=== PATIENT | female | born 1960 | race Caucasian/White ===

== ENCOUNTER 2016-11-30 10:03 | Emergency (ER) | payer OTHER ==
[~2016-11-30] VITALS: Ht 167.6 cm; Wt 68.0 kg
[~2016-11-30 10:03] MED LIST: CLON2TAB2 PO; METH10TA2 PO; QUET400T4 PO
--- NOTE | 2016-11-30 11:06 | PHYS DOC ---
Past Medical History Past Medical History: Anxiety, Bipolar, Renal Disease, Other Additional Past Medical Histor: drug addiction, 2 URETERS RIGHT KIDNEY Past Surgical History: , Hysterectomy Additional Information: 1/2 PACK/DAY Alcohol Use: None Drug Use: None Adult General Chief Complaint Chief Complaint: ABDOMINAL PAIN HPI HPI Patient is a 56 year old female who presents with complaint of left flank pain for the past 2 days. Patient states that she has had worsening symptoms of sharp pain in her left flank. Patient states that she has been having difficulty finding a position of comfort. Patient states she has history of urinary tract infections and pyelonephritis but states that that typically would involve her right side. Patient has had nausea associated with her symptoms. Patient denies any fever or diarrhea. The patient is concerned that she may have another urinary tract infection and came into the emergency department for evaluation. Patient rates her pain currently as 9 out of 10. Patient has not taken any medications to help with symptoms at this time. Review of Systems Review of Systems Constitutional: Denies fever or chills [] Eyes: Denies change in visual acuity, redness, or eye pain [] HENT: Denies nasal congestion or sore throat [] Respiratory: Denies cough or shortness of breath [] Cardiovascular: No additional information not addressed in HPI [] GI: Left flank pain, nausea, denies diarrhea [] : Denies dysuria or hematuria [] Musculoskeletal: Denies back pain or joint pain [] Integument: Denies rash or skin lesions [] Neurologic: Denies headache, focal weakness or sensory changes [] Endocrine: Denies polyuria or polydipsia [] Current Medications Current Medications Current Medications Medications (Trade) Dose Ordered Sig/Cher Start Time Stop Time Status Last Admin Dose Admin Famotidine (Pepcid) 20 mg 1X ONCE 11/30/16 11:15 11/30/16 11:16 DC 11/30/16 11:31 20 MG Fentanyl Citrate 50 mcg 50 mcg PRN Q15MIN PRN 11/30/16 11:15 11/30/16 14:19 DC 11/30/16 12:01 50 MCG Ondansetron HCl (Zofran) 4 mg 1X ONCE 11/30/16 11:15 11/30/16 11:16 DC 11/30/16 11:31 4 MG Sodium Chloride (Iv Sodium Chloride 0.9% 1000ml Bag) 1,000 ml @ 1,000 mls/hr Q1H 11/30/16 11:15 11/30/16 12:14 DC 11/30/16 11:31 1,000 MLS/HR Allergies Allergies Allergies Coded Allergies Type Severity Reaction Last Updated Verified ciprofloxacin Allergy Severe Anaphylaxis 11/30/16 Yes aripiprazole Allergy Intermediate 03/10/15 No latex Allergy Intermediate Rash 11/30/16 Yes metronidazole Allergy Intermediate 03/10/15 No ofloxacin Allergy Intermediate 03/10/15 No prochlorperazine Allergy Intermediate 03/10/15 No Physical Exam Physical Exam Constitutional: Alert, afebrile, appears in moderate discomfort. [] HENT: Normocephalic, atraumatic, bilateral external ears normal, oropharynx moist, no oral exudates, nose normal. [] Eyes: PERRLA, EOMI, conjunctiva normal, no discharge. [] Neck: Normal range of motion, no tenderness, supple, no stridor. [] Cardiovascular:Heart rate regular rhythm, no murmur [] Lungs & Thorax: Bilateral breath sounds clear to auscultation [] Abdomen: Bowel sounds normal, soft, no tenderness, no masses, no pulsatile masses. [] Skin: Warm, dry, no erythema, no rash. [] Back: No midline tenderness, left CVA tenderness to palpation, no flank ecchymosis. [] Extremities: No tenderness, no cyanosis, no clubbing, ROM intact, no edema. [] Neurologic: Alert and oriented X 3, normal motor function, normal sensory function, no focal deficits noted. [] Current Patient Data Vital Signs Vital Signs Date Time Temp Pulse Resp B/P Pulse Ox O2 Delivery O2 Flow Rate FiO2 11/30/16 13:45 62 18 121/87 98 Room Air 11/30/16 10:43 97.6 97.6 Lab Values Laboratory Tests Test 11/30/16 10:17 11/30/16 11:00 Urine Collection Type Unknown Urine Color [place] Urine Clarity Clear Urine pH 6.0 Urine Specific [place] 1.025 Urine Protein Negativemg/dL (NEG-TRACE) Urine Glucose (UA) Negativemg/dL (NEG) Urine Ketones (Stick) Tracemg/dL (NEG) Urine Blood Negative (NEG) Urine Nitrite Negative (NEG) Urine Bilirubin Moderate (NEG) Urine Urobilinogen Dipstick 1.0mg/dL (0.2 mg/dL) Urine Leukocyte Esterase Small (NEG) Urine RBC Occ/HPF (0-2) Urine WBC 1-4/HPF (0-4) Urine Squamous Epithelial Cells Mod/LPF Urine Transitional Epithelial Cells Occ/LPF Urine Bacteria 0/HPF (0-FEW) Urine Mucus Marked/LPF White Blood Count 7.2x10^3/uL (4.0-11.0) Red Blood Count 4.60x10^6/uL (3.50-5.40) Hemoglobin 15.1g/dL (12.0-15.5) Hematocrit 43.8% (36.0-47.0) Mean Corpuscular Volume 95fL (79-100) Mean Corpuscular Hemoglobin 33pg (25-35) Mean Corpuscular Hemoglobin Concent 34g/dL (31-37) Red Cell Distribution Width 12.7% (11.5-14.5) Platelet Count 380x10^3/uL (140-400) Neutrophils (%) (Auto) 69% (31-73) Lymphocytes (%) (Auto) 22% (24-48) L Monocytes (%) (Auto) 8% (0-9) Eosinophils (%) (Auto) 1% (0-3) Basophils (%) (Auto) 1% (0-3) Neutrophils # (Auto) 4.9x10^3uL (1.8-7.7) Lymphocytes # (Auto) 1.6x10^3/uL (1.0-4.8) Monocytes # (Auto) 0.5x10^3/uL (0.0-1.1) Eosinophils # (Auto) 0.1x10^3/uL (0.0-0.7) Basophils # (Auto) 0.1x10^3/uL (0.0-0.2) Sodium Level 132mmol/L (136-145) L Potassium Level 4.2mmol/L (3.5-5.1) Chloride Level 96mmol/L (98-107) L Carbon Dioxide Level 25mmol/L (21-32) Anion Gap 11 (6-14) Blood Urea Nitrogen 11mg/dL (7-20) Creatinine 0.8mg/dL (0.6-1.0) Estimated GFR (Cockcroft-Gault) 74.5 BUN/Creatinine Ratio 14 (6-20) Glucose Level 90mg/dL (70-99) Calcium Level 9.6mg/dL (8.5-10.1) Total Bilirubin 2.2mg/dL (0.2-1.0) H Aspartate Amino Transferase (AST) 116U/L (15-37) H Alanine Aminotransferase (ALT) 145U/L (14-59) H Alkaline Phosphatase 703U/L (46-116) H Total Protein 9.1g/dL (6.4-8.2) H Albumin 3.8g/dL (3.4-5.0) Albumin/Globulin Ratio 0.7 (1.0-1.7) L Lipase 160U/L (73-393) Laboratory Tests 11/30/16 11:00 Laboratory Tests 11/30/16 11:00 EKG EKG Not performed [] Radiology/Procedures Radiology/Procedures [facility] [address] [place] [address] IMAGING REPORT Signed PATIENT: CHAUNCEY ALDRICH ACCOUNT: [id number] : 1960 LOCATION: ER AGE: 56 SEX: F EXAM STATUS: REG ER ORD. PHYSICIAN: JAMIE SALCEDO MD REASON: left flank pain, possible kidney stone PROCEDURE: ABDOMEN PELVIS WO CONTRAST EXAM: Abdomen and pelvis CT without intravenous contrast. HISTORY: Left flank pain. TECHNIQUE: Computed tomographic images of the abdomen and pelvis were obtained without contrast. Multiplanar reformatting was performed. COMPARISON: 03/19/2016. FINDINGS: Evaluation of the lower thorax demonstrates bilateral lower lobe linear and groundglass opacities likely due to atelectasis. There is no effusion. There are implanted breast prostheses. There is coronary artery atherosclerosis. The gallbladder is distended. There is intrahepatic and extrahepatic biliary ductal dilatation. The pancreas is unremarkable. The spleen is unremarkable. The adrenal glands are unremarkable. There is no evidence of nephrolithiasis or obstructive uropathy. 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 The bladder is decompressed. There is no appendicitis. There is a large amount of stool throughout the colon. There is no evidence of small bowel obstruction. The uterus is surgically absent. No pathologically enlarged lymph node is seen. There is no suspicious osseous lesion. IMPRESSION: 1. Large amount of colonic stool. Correlate for constipation. 2. No evidence of nephrolithiasis or obstructive uropathy to correlate with reported flank pain. 3. Biliary ductal dilatation. Correlation with biliary laboratory values or ERCP or MRCP can be performed to exclude a distal obstructing etiology. PQRS Compliance Statement: One or more of the following individualized dose reduction techniques were utilized for this examination: 1. Automated exposure control 2. Adjustment of the mA and/or kV according to patient size 3. Use of iterative reconstruction technique DICTATED and SIGNED BY: RAYMON AGUILAR MD DATE: 11/30/16 8640 CC: JAMIE SALCEDO MD; NO PCP ~ [] Course & Med Decision Making Course & Med Decision Making Pertinent Labs and Imaging studies reviewed. (See chart for details) Patient's workup is concerning for biliary obstruction based off of imaging and lab work. On chart review, the patient has had progressively worsening elevations in her liver enzymes over the past year and a half. Due to severity of patient's symptoms, I recommended that she be admitted to the hospital as she will need to have additional imaging and GI consult to determine the cause of the patient's biliary obstruction with resultant liver failure. The patient was also noted to have a significant amount of stool throughout the colon which may be exacerbating her pain. Due to the patient's pain, I am also concerned the patient may have early stage ascending cholangitis which would need to be evaluated in an inpatient setting. After speaking with the patient regarding this, the patient initially agreed to be admitted to the hospital that she was apprehensive as she is currently on methadone therapy for chronic pain. The patient however decided that she did not want to be admitted to the hospital at this time. Due to the risk of worsening status over the next 2-3 days and the fact that the patient has no follow-up set up at this time, I recommended that the patient not leave at this time. The patient stated that she would not stay and agreed to sign out AGAINST MEDICAL ADVICE. I recommended that she return to the hospital as soon as she is ready and especially if she has any worsening symptoms. Dragon Disclaimer Dragon Disclaimer This electronic medical record was generated, in whole or in part, using a voice recognition dictation system. Departure Departure Impression: Primary Impression: Biliary obstruction Additional Impression: Abdominal pain Disposition: LEFT WITHOUT BEING SEEN Condition: LEFT WITHOUT BEING SEEN Referrals: NO PCP (PCP) Problem Qualifiers Additional Impression: Abdominal pain Abdominal location: left upper quadrant Qualified Code: R10.12 - Left upper quadrant pain JAMIE SALCEDO MD Nov 30, 2016 11:05
[2016-11-30] MEDS ORDERED: ONDANSETRON PF 4 MG/2 ML VIAL. IV ONE (11:15)
[2016-11-30] MEDS ORDERED: FAMOTIDINE 20 MG/2 ML VIAL IVP ONE (11:15)
[2016-11-30] MEDS ORDERED: IV NORMAL SALINE 1000ML BAG 1,000 ML IV SCH (11:15)
[2016-11-30 11:24] LABS: BILIRUBIN,URINE MODERATE (NEG); GLUCOSE,URINE NEGATIVE (NEG); NITRITE,URINE NEGATIVE (NEG); PROTEIN,URINE NEGATIVE (NEG-TRACE)
[2016-11-30 11:24] LABS: BASO # 0.1 x10^3/uL (0.0-0.2); BASO % 1 % (0-3); EOS % 1 % (0-3); HEMATOCRIT 43.8 % (36.0-47.0); HEMOGLOBIN 15.1 g/dL (12.0-15.5); LYMPH # 1.6 x10^3/uL (1.0-4.8); LYMPH % 22 % (24-48); MEAN CORPUSCULAR HEMOGLOBIN 33 pg (25-35); MEAN CORPUSCULAR HGB CONC 34 g/dL (31-37); MEAN CORPUSCULAR VOLUME 95 fL (79-100); MONO % 8 % (0-9); NEUT % 69 % (31-73); PLATELET COUNT 380 x10^3/uL (140-400); RED CELL DISTRIBUTION WIDTH 12.7 % (11.5-14.5); WHITE BLOOD COUNT 7.2 x10^3/uL (4.0-11.0)
[2016-11-30] MEDS: FENTANYL PF 100 MCG/2 ML VIAL. IV PRN ×2 (11:33→12:01)
[2016-11-30 11:40] LABS: ALBUMIN 3.8 g/dL (3.4-5.0); ALBUMIN/GLOBULIN RATIO 0.7 (1.0-1.7); CALCIUM 9.6 mg/dL (8.5-10.1); CREATININE 0.8 mg/dL (0.6-1.0); GFR 74.5; POTASSIUM 4.2 mmol/L (3.5-5.1); TOTAL BILIRUBIN 2.2 mg/dL (0.2-1.0); TOTAL PROTEIN 9.1 g/dL (6.4-8.2)
[2016-11-30 11:45] LABS: BACTERIA,URINE 0 /HPF (0-FEW); RBC,URINE OCC /HPF (0-2)
[2016-11-30 11:46] LABS: SQUAMOUS EPITHELIAL CELL,UR MOD /LPF
--- NOTE | 2016-11-30 13:01 | RAD ---
EXAM: Abdomen and pelvis CT without intravenous contrast. HISTORY: Left flank pain. TECHNIQUE: Computed tomographic images of the abdomen and pelvis were obtained without contrast. Multiplanar reformatting was performed. COMPARISON: 03/19/2016. FINDINGS: Evaluation of the lower thorax demonstrates bilateral lower lobe linear and groundglass opacities likely due to atelectasis. There is no effusion. There are implanted breast prostheses. There is coronary artery atherosclerosis. The gallbladder is distended. There is intrahepatic and extrahepatic biliary ductal dilatation. The pancreas is unremarkable. The spleen is unremarkable. The adrenal glands are unremarkable. There is no evidence of nephrolithiasis or obstructive uropathy. 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 The bladder is decompressed. There is no appendicitis. There is a large amount of stool throughout the colon. There is no evidence of small bowel obstruction. The uterus is surgically absent. No pathologically enlarged lymph node is seen. There is no suspicious osseous lesion. IMPRESSION: 1. Large amount of colonic stool. Correlate for constipation. 2. No evidence of nephrolithiasis or obstructive uropathy to correlate with reported flank pain. 3. Biliary ductal dilatation. Correlation with biliary laboratory values or ERCP or MRCP can be performed to exclude a distal obstructing etiology. PQRS Compliance Statement: One or more of the following individualized dose reduction techniques were utilized for this examination: 1. Automated exposure control 2. Adjustment of the mA and/or kV according to patient size 3. Use of iterative reconstruction technique
[2016-11-30 13:45] VITALS: BP 121/87
== END 2016-11-30 13:48 | disposition left against medical advice (07) ==
LOC: ER 10:03
DX: K83.1 Obstruction of bile duct (principal); F41.9 Anxiety disorder, unspecified; F31.9 Bipolar disorder, unspecified; F17.210 Nicotine dependence, cigarettes, uncomplicated; G89.29 Other chronic pain; Z91.040 Latex allergy status; Z88.1 Allergy status to other antibiotic agents; Z88.8 Allergy status to other drugs, medicaments and biological substances; Z87.440 Personal history of urinary (tract) infections; Z90.710 Acquired absence of both cervix and uterus; Z79.891 Long term (current) use of opiate analgesic
CPT/HCPCS: 36415; 74176; 80053; 81001; 83690; 85027; 87086; 96361; 96374; 96375; 99285; J2405; J3010; J7030; S0028